=== PATIENT | female | born 1965 | race Two or more races ===

== ENCOUNTER 2021-04-16 14:32 | Emergency (ER) | payer OTHER ==
[2021-04-16] MEDS ORDERED: Albuterol 6.7 GM Inhaler INH ONE (16:09)
[2021-04-16] MEDS ORDERED: Dexamethasone 4 MG Tab PO ONE (16:09)
--- NOTE | 2021-04-16 16:10 | EDM.PDOC ---
ED HPI GENERAL MEDICAL PROBLEM - General Chief Complaint: General Stated Complaint: HEADACHE\COUGH Time Seen by Provider: 04/16/21 15:46 Source of Information: Reports: Patient, RN Notes Reviewed History Limitations: Reports: No Limitations - History of Present Illness INITIAL COMMENTS - FREE TEXT/NARRATIVE: Patient is a 56-year-old female presenting to the emergency department with complaints of cough, headache, nasal congestion, body aches. Symptoms began approximately 8 days ago. She has been using Tylenol and ibuprofen for the discomfort. She denies any vomiting or diarrhea but states she has felt nauseous off and on. Patient was not vaccinated for Covid. Last dose of Tylenol was this morning and ibuprofen was last evening. Generalized Pain Score (Numeric/FACES): 7 - Related Data Allergies Allergy/AdvReac Type Severity Reaction Status Date / Time No Known Allergies Allergy Verified 04/16/21 15:03 Home Meds: Home Meds Levothyroxine 0 mcg PO ACBREAKFAST 04/16/21 [History] dexAMETHasone [Decadron] 6 mg PO DAILY 4 Days #4 tablet 04/16/21 [Rx] Past Medical History Cardiovascular History: Reports: High Cholesterol Endocrine/Metabolic History: Reports: Hypothyroidism - Past Surgical History HEENT Surgical History: Reports: Tonsillectomy Female Surgical History: Reports: Tubal Ligation Social & Family History - Tobacco Use Tobacco Use Status *Q: Never Tobacco User - Caffeine Use Caffeine Use: Reports: Coffee - Recreational Drug Use Recreational Drug Use: No ED ROS GENERAL - Review of Systems Review Of Systems: Comprehensive ROS is negative, except as noted in HPI. ED EXAM, GENERAL - Physical Exam Exam: See Below Exam Limited By: No Limitations General Appearance: Alert, WD/WN, No Apparent Distress Respiratory/Chest: No Respiratory Distress, Lungs Clear, Normal Breath Sounds, No Accessory Muscle Use, Chest Non-Tender Cardiovascular: Normal Peripheral Pulses GI/Abdominal: Normal Bowel Sounds, Soft, Non-Tender, No Organomegaly, No Distention, No Abnormal Bruit, No Mass Neurological: Alert, Oriented, CN II-XII Intact, Normal Cognition, Normal Gait, Normal Reflexes, No Motor/Sensory Deficits Psychiatric: Normal Affect, Normal Mood Skin Exam: Warm, Dry, Intact, Normal Color, No Rash Course - Vital Signs Last Recorded V/S: Last Vital Signs Temp 96.7 F L 04/16/21 15:01 Pulse 74 04/16/21 15:01 Resp 16 04/16/21 15:01 BP 125/79 04/16/21 15:01 Pulse Ox 97 04/16/21 15:01 - Orders/Labs/Meds Labs: Laboratory Tests 04/16/21 Range/Units 15:05 SARS-CoV-2 RNA (JACQUELYN) Positive H (NEGATIVE) Meds: Medications Discontinued Medications Generic Name Dose Route Start Last Admin Trade Name Shirley PRN Reason Stop Dose Admin Albuterol 0 gm 04/16/21 16:09 04/16/21 16:23 Albuterol 6.7 Gm Inhaler INH 04/16/21 16:10 2 inhaler ONETIME ONE Administration Dexamethasone 6 mg 04/16/21 16:09 04/16/21 16:24 Dexamethasone 4 Mg Tab PO 04/16/21 16:10 6 mg ONETIME ONE Administration - Re-Assessments/Exams Free Text/Narrative Re-Assessment/Exam: Patient is a 56-year-old female presenting to the emergency department with complaints of cough, body aches, nasal congestion, and body aches. Symptoms have been present for approximately 8 days. She denies any known fevers. Her voice is hoarse, but lung sounds are clear. Exam is otherwise unremarkable. I have ordered chest x-ray and Covid test. 04/16/21 16:09 Chest x-ray shows no acute abnormalities. Covid test is unfortunately positive. Patient be discharged home with albuterol inhaler and dexamethasone. Discussed return precautions. Discharge instructions as documented. Departure - Departure Time of Disposition: 16:11 Disposition: Home, Self-Care 01 Condition: Good Clinical Impression: COVID-19 - Discharge Information *PRESCRIPTION DRUG MONITORING PROGRAM REVIEWED*: No *COPY OF PRESCRIPTION DRUG MONITORING REPORT IN PATIENT NATALIA: No Prescriptions: dexAMETHasone [Decadron] 6 mg PO DAILY 4 Days #4 tablet Instructions: COVID-19 Referrals: Veronica Gale [facility] [employer] [Primary Care Provider] - Forms: ED Department Discharge, ED Return to Work/School Form Additional Instructions: You were seen in the emergency department for an 8-day history of nasal congestion, cough, headaches, and body aches. Work-up included chest x-ray and Covid test. Your chest x-ray was found to be normal, however your Covid test was positive. You have been started on dexamethasone which is a steroid and albuterol inhaler. Take the dexamethasone daily for 4 days starting tomorrow. Albuterol inhaler, you may use 2 puffs every 4 hours as needed for shortness of breath. Continue to monitor your symptoms. If you develop any new or worsening symptoms of concern, please do not hesitate to return to the emergency department for reevaluation. Sepsis Event Note (ED) - Evaluation Sepsis Screening Result: No Definite Risk - Focused Exam Vital Signs: Vital Signs Temp Pulse Resp BP Pulse Ox 04/16/21 15:01 96.7 F L 74 16 125/79 97
--- NOTE | 2021-04-16 20:40 | CR ---
Chest: PA view of the chest was obtained. Comparison: No prior chest imaging is available. Heart size and mediastinum are within normal limits. Lungs are clear with no acute parenchymal change being seen. No acute osseous abnormality is appreciated. Impression: 1. Nothing acute is appreciated on PA chest x-ray. Diagnostic code #1
== END 2021-04-16 16:28 | disposition home or self-care (01) ==
LOC: JD.ED 14:32
DX: U07.1 COVID-19 (principal); E03.9 Hypothyroidism, unspecified; Z79.899 Other long term (current) drug therapy
CPT/HCPCS: 71045; 87635; 99283; A9270; J8540; U0002